=== PATIENT | female | born 1965 | race Caucasian/White ===

== ENCOUNTER → 2017-04-28 | Outpatient (CLI) | payer BC ==
[~2017-04-28] MED LIST: ALLEGRA180 MG PO; AZOPT5 ML OP; FLONASE 0.05% N16 GM; FLOVENT7.9 GM; GUAIFENESIN PO; MELATONIN10 M1 PO; MIRALAX17 G1 PO; MULTI-DAY1 TAB PO; PEPCID AC20 M2 PO; PRILOSEC20 MG PO; STOOL SOFTENER50 MG PO; TIMOPTIC 0.5% OP5 M1 OD; TIMOPTIC2.5 ML OU; UNISOM25 M1 PO; ZANTAC300 MG PO
--- NOTE | ~2017-04-28 | MY11 ---
[facility] A Service of [facility] RADIOLOGY TEXT RESULTS PATIENT: MANNY DAVALOS LOCATION: [facility] : 65 UNIT #: [id number] AGE: [address]: Sebas Laura MD SEX: F ORDER DR: [id number] [address] [address] [id number] O MR#: [id number] Acc #: [id number] NAME: MANNY DAVALOS : 1965 SEX: F STUDY DATE/TIME: 04/28/2017 9:34 UNIT: [facility] ROOM: STUDY DESCRIPTION: MY Mammogram Screening Dig Dc Attending Physician: Sebas Laura M.D. Referring Physician: Sebas Laura M.D. Ordering Physician: Sebas Laura M.D. Primary Care Physician: Sebas Laura M.D. MEDICAL IMAGING REPORT This report is preliminary unless electronic signature is present. EXAM Digital screening mammogram 04/28/2017 HISTORY 52-year-old woman, no risk elevation. Annual screen. COMPARISON STUDIES Comparison mammograms date to 12/22/2006 with most recent 06/12/2015 FINDINGS Digital imaging of each breast was completed utilizing a two-view examination of each breast in craniocaudal and mediolateral-oblique projections. Review and interpretation of digital mammograms include a second review in conjunction with FDA-approved CAD device. There is a normal parenchymal presentation bilaterally consistent with the patient's age. There are no breast masses imaged and no parenchymal asymmetry is visualized. There are no suspicious microcalcifications and I see no focal architectural disturbance. IMPRESSION Negative screening digital mammogram. One-year followup recommended. Patients over the age of 40 are entered into a reminder system with target due date for the next mammogram. A result letter will also be sent to the patient. BIRADS: 1 Negative Dictated by... Jeronimo Connell M.D. THIS IS AN ELECTRONICALLY VERIFIED REPORT [facility] A Service of [facility] RADIOLOGY TEXT RESULTS PATIENT: MANNY DAVALOS LOCATION: [facility] : 65 UNIT #: [id number] AGE: [address]: Sebas Laura MD SEX: F ORDER DR: Jeronimo Connell M.D. at 04/28/2017 3:51 PM Zeus TD: 04/28/2017 15:17 JOB #: [id number] MEDICAL IMAGING REPORT Page 1 of 1
== END | disposition home or self-care (01) ==
LOC: SMAM 04-24 09:30
DX: Z12.31 Encounter for screening mammogram for malignant neoplasm of breast (principal)
CPT/HCPCS: G0202